=== PATIENT | female | born 1985 | race American Indian/Alaskan Native ===

== ENCOUNTER 2018-11-10 08:41 | Emergency (ER) | payer SELFPAY ==
[2018-11-10 08:49] VITALS: BP 127/84
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
[2018-11-10] MEDS ORDERED: TORADOL IM ONE (11:59)
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
== END 2018-11-10 12:16 | disposition home or self-care (01) ==
LOC: ED 08:41
DX: R07.89 Other chest pain (principal); Z88.6 Allergy status to analgesic agent; Y09 Assault by unspecified means
CPT/HCPCS: 71101; 96372; 99283; J1885